=== PATIENT | female | born 1990 | race Caucasian/White ===

== ENCOUNTER 2017-09-02 21:31 | Emergency (ER) | payer SELFPAY ==
[2017-09-02 22:26] LABS: BASO % 0.4 % (0.0-2.0); EOS # 0.2 K/uL (0.0-0.7); EOS % 1.8 % (0.0-4.0); HEMOGLOBIN 12.3 g/dL (11.0-16.0); LYMPH # 3.2 K/uL (1.0-4.3); LYMPH % 31.8 % (20.0-40.0); MEAN CELL VOLUME 83.4 fL (81.0-99.0); MEAN CORPUSCULAR HGB CONC 33.6 g/dL (33.0-37.0); MEAN PLATELET VOLUME 8.8 fL (7.2-11.7); MONO % 9.5 % (0.0-10.0); NEUT # 5.7 K/uL (1.8-7.0); NEUT % 56.5 % (50.0-75.0); RBC 4.4 Mil/uL (3.80-5.20); RED CELL DISTRIBUTION WIDTH 15.7 % (11.5-14.5); WHITE BLOOD COUNT 10.1 K/uL (4.8-10.8)
[2017-09-02 22:28] LABS: HCG,QUALITATIVE URINE POSITIVE (NEGATIVE)
[2017-09-02 22:39] LABS: SQUAMOUS EPITHIAL 3 /hpf (0-5); URINE BACTERIA OCC (<OCC); URINE BILIRUBIN NEGATIVE (NEGATIVE); URINE BLOOD 3+ (NEGATIVE); URINE CLARITY Hazy (Clear); URINE COLOR Yellow (YELLOW); URINE GLUCOSE (UA) NORMAL (Normal); URINE LEUKOCYTE ESTERASE NEG Leu/uL (Negative); URINE NITRATE NEGATIVE (NEGATIVE); URINE PROTEIN NEGATIVE (NEGATIVE); URINE UROBILINOGEN NORMAL mg/dL (0.2-1.0)
[2017-09-02 22:44] LABS: ALB/GLOB RATIO 1.2 (1.0-2.1); ALBUMIN 4.2 g/dL (3.5-5.0); ALT/SGPT 24 U/L (9-52); AST/SGOT 21 U/L (14-36); BLOOD UREA NITROGEN 13 mg/dL (7-17); CALCIUM 9.7 mg/dl (8.6-10.4); GFR AFRICAN-AMERICAN > 60; GFR NON-AFRICAN AMERICAN > 60
[2017-09-02 23:13] VITALS: BP 106/70; PULSE 66; RESP 18; TEMP 97.9; O2SAT 100
--- NOTE | 2017-09-02 23:17 | US ---
EXAM: US First Trimester, Transabdominal CLINICAL HISTORY: 26 years old, female; Signs and symptoms; Lmp or gestational age (in weeks): 07/08/17; Antepartum complications; Bleeding; ; Additional info: Vaginal bleeding, R/O ectopic TECHNIQUE: Real-time transabdominal obstetrical ultrasound of the maternal pelvis and a first trimester with image documentation. COMPARISON: No relevant prior studies available. FINDINGS: Gestation: Single live intrauterine gestation. heart rate of 130 beats per minute. Breese-rump length of 0.8 cm, correlating with gestational age of 6 weeks 5 days. Uterus/cervix: 0.9 x 0.7 x 0.6 cm collection along gestational sac. No cervical dilatation or effacement. Ovaries: Normal ovaries. No adnexal masses. Free fluid: No significant free fluid. IMPRESSION: 1. Single live intrauterine gestation. 2. Subchorionic hemorrhage.
--- NOTE | 2017-09-02 23:28 | C.PDOC ---
History Of Present Illness Pt c/o vaginal bleeding. States that she is 8 weeks . Time Seen by Provider: 09/02/17 21:49 Chief Complaint (Nursing): Female Genitourinary History Per: Patient Onset/Duration Of Symptoms: Hrs (tonight) Current Symptoms Are (Timing): Still Present Severity: Moderate Quality Of Discomfort: denies: "Pain" Alleviating Factors: None Additional History Per: Prior Records Abnormal Vaginal Bleeding: Yes Last Menstral Period: 8 weeks ago Past Medical History Reviewed: Historical Data, Nursing Documentation, Vital Signs Vital Signs: Last Vital Signs Temp 97.9 F 09/02/17 23:12 Pulse 66 09/02/17 23:12 Resp 18 09/02/17 23:12 BP 106/70 09/02/17 23:12 Pulse Ox 100 09/02/17 23:12 - Medical History PMH: No Chronic Diseases Surgical History: Appendectomy, Family History: States: Unknown Family Hx - Social History Hx Tobacco Use: No Hx Alcohol Use: No Hx Substance Use: No - Immunization History Hx Tetanus Toxoid Vaccination: No Hx Influenza Vaccination: No Hx Pneumococcal Vaccination: No Review Of Systems Except As Marked, All Systems Reviewed And Found Negative. Constitutional: Negative for: Fever, Weakness Cardiovascular: Negative for: Chest Pain, Light Headedness Respiratory: Negative for: Shortness of Breath Gastrointestinal: Negative for: Vomiting, Abdominal Pain Genitourinary: Positive for: Vaginal Bleeding. Negative for: Dysuria, Pelvic Pain Musculoskeletal: Negative for: Neck Pain, Back Pain Skin: Negative for: Rash Neurological: Negative for: Weakness, Numbness, Dizziness Physical Exam - Physical Exam Appears: Non-toxic, No Acute Distress Skin: Normal Color, Warm, Dry, No Rash Head: Atraumatic, Normacephalic Eye(s): bilateral: Normal Inspection, PERRL, EOMI Neck: Normal ROM, Supple Cardiovascular: Rhythm Regular Respiratory: Normal Breath Sounds, No Accessory Muscle Use Gastrointestinal/Abdominal: Soft, No Tenderness Back: No CVA Tenderness Extremity: Normal ROM Neurological/Psych: Oriented x3, Normal Motor, Normal Sensation ED Course And Treatment - Laboratory Results Result Diagrams: 09/02/17 22:21 09/02/17 22:21 Urine POC: Positive O2 Sat by Pulse Oximetry: 100 Pulse Ox Interpretation: Normal - CT Scan/US Pelvic US Other Rad Studies (CT/US): Read By Radiologist, Radiology Report Reviewed CT/US Interpretation: IMPRESSION: 1. Single live intrauterine gestation. 2. Subchorionic hemorrhage. Reassessment Condition: Improved Disposition Counseled Patient/Family Regarding: Studies Performed, Diagnosis, Need For Followup - Disposition Referrals: [facility] [Outside] Disposition: HOME/ ROUTINE Disposition Time: 23:28 Condition: STABLE Additional Instructions: Pelvic rest as discussed. Follow up with your Supervisor [facility] doctor this week. Return to the ER if you develop dizziness, abdominal pain, heavy bleeding, worsening of symptoms or if you have any other concerns. Instructions: Threatened Miscarriage (DC) - Clinical Impression Clinical Impression: Subchorionic hemorrhage, Threatened in first trimester
== END 2017-09-02 23:41 | disposition home or self-care (01) ==
LOC: C.ER 21:31
DX: O20.0 Threatened abortion (principal); Z3A.01 Less than 8 weeks gestation of pregnancy

== ENCOUNTER 2017-10-14 10:57 | Emergency (ER) | payer MEDICAID ==
[2017-10-14 11:03] VITALS: BP 109/69; PULSE 75; RESP 18; TEMP 98; O2SAT 98
--- NOTE | 2017-10-14 11:24 | C.PDOC ---
History Of Present Illness 27 year old female presents to the emergency room with complaints of a urinary tract infection. Patient states that she is experiencing a burning sensation while urinating, along with blood in her urine for the past three days. Patient reports that she is 13 weeks . She recalls a previous UTI "a long time ago" with the same symptomatic qualities. Patient reports she is currently taking Folic Acid and multivitamins for her . She denies any medical issues, smoking, drinking, or family history of diseases. Time Seen by Provider: 10/14/17 11:05 Chief Complaint (Nursing): Female Genitourinary History Per: Patient History/Exam Limitations: no limitations Onset/Duration Of Symptoms: Days (3) Associated Symptoms: Urinary Symptoms (pain while urinating, blood in urine. ) Past Medical History Reviewed: Historical Data, Nursing Documentation, Vital Signs Vital Signs: Last Vital Signs Temp 98 F 10/14/17 11:01 Pulse 75 10/14/17 11:01 Resp 18 10/14/17 11:01 BP 109/69 10/14/17 11:01 Pulse Ox 98 10/14/17 11:28 - Medical History PMH: No Chronic Diseases Surgical History: Appendectomy, Family History: States: No Known Family Hx - Social History Hx Tobacco Use: No Hx Alcohol Use: No Hx Substance Use: No - Immunization History Hx Tetanus Toxoid Vaccination: No Hx Influenza Vaccination: No Hx Pneumococcal Vaccination: No Review Of Systems Except As Marked, All Systems Reviewed And Found Negative. Genitourinary: Positive for: Hematuria, Other (pain during urination.) Physical Exam - Physical Exam Appears: Well, Non-toxic Skin: Normal Color Head: Atraumatic, Normacephalic Eye(s): bilateral: Normal Inspection Ear(s): Bilateral: Normal Nose: Normal Oral Mucosa: Moist Tongue: Normal Appearing Neck: Normal, Supple Cardiovascular: Rhythm Regular Respiratory: Normal Breath Sounds Gastrointestinal/Abdominal: Normal Exam, No Tenderness ED Course And Treatment O2 Sat by Pulse Oximetry: 98 (RA) Pulse Ox Interpretation: Normal Medical Decision Making Medical Decision Making: Plan: * Urinalysis Initial Impression: Urinary Tract Infection Disposition Counseled Patient/Family Regarding: Diagnosis, Need For Followup, Rx Given - Disposition Disposition: HOME/ ROUTINE Disposition Time: 12:13 Condition: STABLE Additional Instructions: Thank you for letting us take care of you today. Return to the ER if your symptoms worsen, or if any problems. Take the medication listed below as prescribed. It's important to follow up with your doctor in 2-3 days for a re-evaluation. Your doctor can also call our hospital for the urine culture results. Prescriptions: Cephalexin [cephalexin] 1 tab PO BID #14 cap Instructions: Urinary Tract Infections in Adults Forms: [facility] (Portuguese), General Discharge Instructions Print Language: MOROCCAN - POA Present On Arrival: None - Clinical Impression Clinical Impression: UTI (urinary tract infection), - Scribe Statement The provider has reviewed the documentation as recorded by the Scribe (Lucio Monroyqvi) Provider Attestation: All medical record entries made by the Scribe were at my direction and personally dictated by me. I have reviewed the chart and agree that the record accurately reflects my personal performance of the history, physical exam, medical decision making, and the department course for this patient. I have also personally directed, reviewed, and agree with the discharge instructions and disposition.
[2017-10-14 11:47] LABS: HCG,QUALITATIVE URINE POSITIVE (NEGATIVE)
[2017-10-14 11:52] LABS: SQUAMOUS EPITHIAL 4 /hpf (0-5); URINE BACTERIA OCC (<OCC); URINE BILIRUBIN NEGATIVE (NEGATIVE); URINE BLOOD 3+ (NEGATIVE); URINE CLARITY Hazy (Clear); URINE COLOR Yellow (YELLOW); URINE GLUCOSE (UA) NORMAL (Normal); URINE LEUKOCYTE ESTERASE 3+ Leu/uL (Negative); URINE PROTEIN 2+ mg/dL (NEGATIVE); URINE UROBILINOGEN NORMAL mg/dL (0.2-1.0)
== END 2017-10-14 12:34 | disposition home or self-care (01) ==
LOC: C.ER 10:57
DX: O23.41 Unspecified infection of urinary tract in pregnancy, first trimester (principal); Z3A.13 13 weeks gestation of pregnancy

== ENCOUNTER 2017-11-21 19:14 | Emergency (ER) | payer MEDICAID ==
[2017-11-21 19:40] VITALS: BP 120/72; PULSE 86; RESP 18; TEMP 98.3; O2SAT 100
[2017-11-21 19:57] LABS: SQUAMOUS EPITHIAL 3 /hpf (0-5); URINE BACTERIA MOD (<OCC); URINE BILIRUBIN NEGATIVE (NEGATIVE); URINE BLOOD 1+ (NEGATIVE); URINE CLARITY Hazy (Clear); URINE COLOR Yellow (YELLOW); URINE GLUCOSE (UA) NORMAL (Normal); URINE LEUKOCYTE ESTERASE 2+ Leu/uL (Negative); URINE PROTEIN 1+ mg/dL (NEGATIVE); URINE UROBILINOGEN NORMAL mg/dL (0.2-1.0)
--- NOTE | 2017-11-21 20:24 | C.PDOC ---
History Of Present Illness 27 y/o female, 19 weeks , (LMP 07/08/17), presents to the ER c/o persistent urinary frequency and urgency since 2 am last night. Pt had similar sx in the beginning of September and she was treated for UTI in [facility] ER on . Pt notes that she has not felt movement of her baby and she has an apt with ENG[employer] GENER[employer] in 3 days. Denies fever, chills, abdominal pain, n/v/d, vaginal bleeding , and vaginal discharge. Time Seen by Provider: 11/21/17 19:45 Chief Complaint (Nursing): Female Genitourinary History Per: Patient History/Exam Limitations: no limitations Onset/Duration Of Symptoms: Days Current Symptoms Are (Timing): Still Present Severity: Moderate Past Medical History Reviewed: Historical Data, Nursing Documentation, Vital Signs Vital Signs: Last Vital Signs Temp 98.3 F 11/21/17 19:37 Pulse 86 11/21/17 19:37 Resp 18 11/21/17 19:37 BP 120/72 11/21/17 19:37 Pulse Ox 100 11/21/17 20:35 - Medical History PMH: No Chronic Diseases Surgical History: Appendectomy, Family History: States: No Known Family Hx - Social History Hx Tobacco Use: No Hx Alcohol Use: No Hx Substance Use: No - Immunization History Hx Tetanus Toxoid Vaccination: No Hx Influenza Vaccination: No Hx Pneumococcal Vaccination: No Review Of Systems Constitutional: Negative for: Fever, Chills Gastrointestinal: Negative for: Nausea, Vomiting, Abdominal Pain, Diarrhea Genitourinary: Positive for: Dysuria, Frequency. Negative for: Vaginal Discharge, Vaginal Bleeding, Pelvic Pain Physical Exam - Physical Exam Appears: Non-toxic, No Acute Distress Skin: Normal Color, Warm, Dry Head: Atraumatic, Normacephalic Eye(s): bilateral: Normal Inspection Nose: Normal Oral Mucosa: Moist Neck: Supple Chest: Symmetrical Cardiovascular: Rhythm Regular Respiratory: Normal Breath Sounds, No Rales, No Rhonchi, No Wheezing Gastrointestinal/Abdominal: Soft, No Tenderness Neurological/Psych: Oriented x3, Normal Speech ED Course And Treatment O2 Sat by Pulse Oximetry: 100 (RA) Pulse Ox Interpretation: Normal Medical Decision Making Medical Decision Making: Plan: --Keflex PO --UA Updates: Pt's culture results from her last visit to the ER have been reviewed. Pt will be given Rx for Keflex. Disposition - Disposition Referrals: Justo Langford MD [Primary Care Provider] - Disposition: HOME/ ROUTINE Disposition Time: 20:49 Condition: GOOD Additional Instructions: Please drink increased fluids water and cranberry juice recommended. Take antibiotics as prescribed. Follow up with Dr Langford on Fri as scheduled. Return to ER for abdominal pain, fever, back pain, vomiting, vaginal bleeding or any other concerns. 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 - Scribe Statement The provider has reviewed the documentation as recorded by the Anthonyibe Tanika Tran Provider Attestation All medical record entries made by the Scribe were at my direction and personally dictated by me. I have reviewed the chart and agree that the record accurately reflects my personal performance of the history, physical exam, medical decision making, and the department course for this patient. I have also personally directed, reviewed, and agree with the discharge instructions and disposition.
== END 2017-11-21 20:58 | disposition home or self-care (01) ==
LOC: C.ER 19:14 → SUPCPDRO 19:14 → C.ER 20:58
DX: O23.42 Unspecified infection of urinary tract in pregnancy, second trimester (principal); Z3A.19 19 weeks gestation of pregnancy

== ENCOUNTER 2018-04-13 13:52 | Emergency (ER) | payer OTHER ==
[2018-04-13 13:56] VITALS: BMI 27.8
[2018-04-13 14:00] VITALS: BP 109/73; PULSE 82; RESP 18; TEMP 98.3; O2SAT 99
--- NOTE | 2018-04-13 14:17 | C.PDOC ---
History Of Present Illness 27-year-old female presents to the ED for wound check of abdominal incision. Patient had on 04/06 and had jose angel removed yesterday. Today she noticed a small opening to the right side of her wound. Denies fever, pain, drainage or odor. Time Seen by Provider: 04/13/18 14:05 Chief Complaint (Nursing): Wound Check History Per: Patient History/Exam Limitations: no limitations Onset/Duration Of Symptoms: Hrs Current Symptoms Are (Timing): Still Present Quality Of Symptoms: denies: Painful, Draining Past Medical History Reviewed: Historical Data, Nursing Documentation, Vital Signs Vital Signs: Last Vital Signs Temp 98.3 F 04/13/18 13:56 Pulse 82 04/13/18 13:56 Resp 18 04/13/18 13:56 BP 109/73 04/13/18 13:56 Pulse Ox 99 04/13/18 13:56 - Medical History PMH: Denies: Depression, Diabetes, HTN Surgical History: Appendectomy, - [facility] EXTRACTION OF POC, LOW CERVICAL, OPEN APPROACH (04/06/18) Family History: States: Unknown Family Hx - Social History Hx Tobacco Use: No Hx Alcohol Use: No Hx Substance Use: No - Immunization History Hx Tetanus Toxoid Vaccination: No Hx Influenza Vaccination: No Hx Pneumococcal Vaccination: No Review Of Systems Except As Marked, All Systems Reviewed And Found Negative. Constitutional: Negative for: Fever, Chills Gastrointestinal: Positive for: Other (incision opening, no drainage or pain). Negative for: Abdominal Pain Skin: Negative for: Rash Physical Exam - Physical Exam Appears: Well, Non-toxic, No Acute Distress Skin: Warm, Dry Head: Atraumatic, Normacephalic Eye(s): bilateral: Normal Inspection Neck: Normal ROM Chest: Symmetrical Respiratory: No Accessory Muscle Use Gastrointestinal/Abdominal: Bowel Sounds (normal), Soft, Other (pubic area with linear incisional wound and right distal edge with superficial 1cm opening, no discharge expressed on palpation; no erythema, swelling, tenderness, or odor) Extremity: Bilateral: Atraumatic, Normal Color And Temperature, Normal ROM Neurological/Psych: Oriented x3, Normal Speech ED Course And Treatment O2 Sat by Pulse Oximetry: 99 (RA) Pulse Ox Interpretation: Normal Medical Decision Making Medical Decision Making: Impression: s/p with small wound opening, no discharge or signs of infection [address] Pritchard, who recommends steri-strip application and can discharge Area was cleansed with NS. 2 steri strips applied. Explain to patient the strips will fall off in few days to one week. Patient stable for discharge. Disposition Counseled Patient/Family Regarding: Diagnosis, Need For Followup - Disposition Referrals: Leeanna Walter MD [Staff Provider] - Manuela Pritchard DO [Staff Provider] - Disposition: HOME/ ROUTINE Disposition Time: 14:15 Condition: GOOD Additional Instructions: Steri strips were applied to wound, these will fall off in few days or remove in one week. 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 - Scribe Statement The provider has reviewed the documentation as recorded by the Scribe (Lavinia Morse) All medical record entries made by the Scribe were at my direction and personally dictated by me. I have reviewed the chart and agree that the record accurately reflects my personal performance of the history, physical exam, medical decision making, and the department course for this patient. I have also personally directed, reviewed, and agree with the discharge instructions and disposition.
== END 2018-04-13 14:32 | disposition home or self-care (01) ==
LOC: C.ER 13:52
DX: Z48.01 Encounter for change or removal of surgical wound dressing (principal)